=== PATIENT | female | born 1950 | race Caucasian/White ===

== ENCOUNTER 2018-05-11 15:16 | Emergency (ER) | payer MEDICARE, MEDICAID ==
[~2018-05-11] VITALS: Ht 157.5 cm; Wt 61.0 kg
[2018-05-11 16:03] LABS: BASOPHILS % (AUTO) 0.6 % (0-1); EOSINOPHILS % (AUTO) 0.7 % (0-6); HEMATOCRIT 39.9 % (35.0-45.0); HEMOGLOBIN 13.7 g/dl (12.0-16.0); LYMPHOCYTES # (AUTO) 2.2 X10'3 (1.1-4.8); LYMPHOCYTES % (AUTO) 33.4 % (21-51); MEAN CORPUSCULAR HEMOGLOBIN 32.4 PG (27.0-31.0); MEAN CORPUSCULAR HGB CONC 34.4 % (33.0-36.5); MEAN CORPUSCULAR VOLUME 94.1 FL (78-98); MEAN PLATELET VOLUME 9.2 FL (7.4-10.4); MONOCYTES # (AUTO) 0.3 X10'3 (0-0.9); MONOCYTES % (AUTO) 5.2 % (2-12); NEUTROPHILS % (AUTO) 60.1 % (42-75); PLATELET COUNT 139 X10'3 (140-440); RED BLOOD COUNT 4.24 X10'6 (4.20-5.60); RED CELL DISTRIBUTION WIDTH 13.1 % (11.5-14.5); WHITE BLOOD COUNT 6.7 X10'3 (4.5-11.0)
[2018-05-11 16:05] LABS: CLARITY,URINE CLEAR (Clear); COLOR,URINE YELLOW (Yellow); GLUCOSE, URINE NEGATIVE (Neg); KETONES,URINE NEGATIVE (Neg); LEUKOCYTE ESTERASE ,URINE NEGATIVE (Neg); NITRITES, URINE NEGATIVE (Neg); OCCULT BLOOD,URINE NEGATIVE (Neg); PROTEIN,URINE NEGATIVE (Neg); UROBILINOGEN,URINE 0.2 E.U/dL (0.2-1.0)
[2018-05-11 16:06] LABS: UA COLLECTION TYPE CLN CATCH MIDSTREAM
[2018-05-11 16:11] LABS: PROTHROMBIN TIME 10.2 SECONDS (9.0-12.0)
[2018-05-11 16:24] LABS: ALANINE AMINOTRANSFERASE 28 U/L (12-78); ALBUMIN 3.3 G/DL (3.4-5.0); ALBUMIN/GLOBULIN RATIO 0.9 (1.1-1.5); ALKALINE PHOSPHATASE 73 IU/L (46-116); ANION GAP 6 (8-16); ASPARTATE AMINO TRANSFERASE 18 U/L (10-37); BILIRUBIN,TOTAL 0.2 MG/DL (0.1-1.0); BLOOD UREA NITROGEN 10 MG/DL (7-18); BUN/CREATININE RATIO 10.2 (6.6-38.0); CALCIUM 8.8 MG/DL (8.5-10.1); CHLORIDE 108 MMOL/L (99-107); CREATININE 0.98 MG/DL (0.40-0.90); GLUCOSE 83 MG/DL (70-104); POTASSIUM 3.5 MMOL/L (3.5-5.1); SODIUM 143 MMOL/L (135-145); TOTAL CARBON DIOXIDE 29.3 MMOL/L (24-32); TOTAL PROTEIN 6.9 G/DL (6.4-8.2); eGFR 57 ML/MIN
[2018-05-11] MEDS ORDERED: BISA-155 PO (18:11)
[2018-05-11 18:22] VITALS: BP 128/82
== END 2018-05-11 18:25 | disposition home or self-care (01) ==
LOC: ER 15:19
DX: D35.02 Benign neoplasm of left adrenal gland (principal); K59.00 Constipation, unspecified; R11.0 Nausea; Z79.899 Other long term (current) drug therapy
CPT/HCPCS: 36415; 74176; 80053; 81003; 85025; 85610; 99285

== ENCOUNTER 2018-08-01 14:31 | Emergency (ER) | payer MEDICARE, MEDICAID ==
[~2018-08-01] VITALS: Ht 162.6 cm; Wt 50.0 kg
[~2018-08-01 14:31] MED LIST: BISA-155 PO
[2018-08-01] MEDS ORDERED: normal saline 1000ml 1,000 ML IV ONE (15:30)
[2018-08-01 15:57] LABS: BASOPHILS % (AUTO) 0.2 % (0-1); EOSINOPHILS # (AUTO) 0.1 X10'3 (0-0.9); EOSINOPHILS % (AUTO) 1.5 % (0-6); HEMATOCRIT 38.2 % (35.0-45.0); HEMOGLOBIN 12.8 g/dl (12.0-16.0); LYMPHOCYTES # (AUTO) 0.8 X10'3 (1.1-4.8); LYMPHOCYTES % (AUTO) 12.5 % (21-51); MEAN CORPUSCULAR HEMOGLOBIN 29.9 PG (27.0-31.0); MEAN CORPUSCULAR HGB CONC 33.4 % (33.0-36.5); MEAN CORPUSCULAR VOLUME 89.5 FL (78-98); MEAN PLATELET VOLUME 8.8 FL (7.4-10.4); MONOCYTES # (AUTO) 1.2 X10'3 (0-0.9); MONOCYTES % (AUTO) 17.2 % (2-12); NEUTROPHILS # (AUTO) 4.6 X10'3 (1.8-7.7); NEUTROPHILS % (AUTO) 68.6 % (42-75); PLATELET COUNT 184 X10'3 (140-440); RED BLOOD COUNT 4.26 X10'6 (4.20-5.60); RED CELL DISTRIBUTION WIDTH 13.3 % (11.5-14.5); WHITE BLOOD COUNT 6.7 X10'3 (4.5-11.0)
[2018-08-01 16:00] LABS: ALANINE AMINOTRANSFERASE 386 U/L (12-78); ALBUMIN 2.9 G/DL (3.4-5.0); ALBUMIN/GLOBULIN RATIO 0.6 (1.1-1.5); ALKALINE PHOSPHATASE 152 IU/L (46-116); ANION GAP 10 (8-16); ASPARTATE AMINO TRANSFERASE 402 U/L (10-37); BILIRUBIN,TOTAL 0.5 MG/DL (0.1-1.0); BLOOD UREA NITROGEN 18 MG/DL (7-18); BUN/CREATININE RATIO 15.5 (6.6-38.0); CALCIUM 9.3 MG/DL (8.5-10.1); CHLORIDE 98 MMOL/L (99-107); CREATININE 1.16 MG/DL (0.40-0.90); GLUCOSE 132 MG/DL (70-104); POTASSIUM 3.8 MMOL/L (3.5-5.1); SODIUM 134 MMOL/L (135-145); TOTAL CARBON DIOXIDE 26.2 MMOL/L (24-32); TOTAL PROTEIN 7.6 G/DL (6.4-8.2); eGFR 47 ML/MIN
[2018-08-01 16:10] LABS: LIPASE 753 U/L (73-393); TROPONIN I < 0.04 NG/ML (0.0-0.05)
[2018-08-01 17:06] LABS: CLARITY,URINE SLIGHTLY CLOUDY (Clear); GLUCOSE, URINE NEGATIVE (Neg); KETONES,URINE TRACE mg/dl (Neg); LEUKOCYTE ESTERASE ,URINE NEGATIVE (Neg); NITRITES, URINE NEGATIVE (Neg); OCCULT BLOOD,URINE MODERATE (Neg); PROTEIN,URINE TRACE mg/dl (Neg); UROBILINOGEN,URINE 0.2 E.U/dL (0.2-1.0)
[2018-08-01 17:27] LABS: COLOR,URINE AMBER (Yellow); UA COLLECTION TYPE CLN CATCH MIDSTREAM
[2018-08-01 17:28] LABS: BACTERIA,URINE FEW /HPF (Neg); MUCUS STRANDS MANY /LPF (Neg); RBC,URINE 0-2 /HPF (0-2); SQUAMOUS EPITHELIAL CELL,UR FEW /LPF (FEW)
[2018-08-01] MEDS ORDERED: NITR100C6 PO (18:02)
[2018-08-01] MEDS ORDERED: nitrofuran/nitrofuran macrocrysal 100 MG capsule PO ONE (18:10)
[2018-08-01] MEDS ORDERED: AZIT250T PO (18:40)
[2018-08-01 19:05] VITALS: BP 125/65
== END 2018-08-01 19:10 | disposition home or self-care (01) ==
LOC: ER 14:32
DX: N39.0 Urinary tract infection, site not specified (principal); J18.9 Pneumonia, unspecified organism; R19.7 Diarrhea, unspecified; R53.1 Weakness; R79.9 Abnormal finding of blood chemistry, unspecified
CPT/HCPCS: 36415; 71045; 74176; 80053; 81001; 83690; 84443; 84484; 85025; 87077; 87088; 93005; 99285; J7030

== ENCOUNTER 2018-08-20 17:44 | Observation (INO) | payer MEDICARE, MEDICAID ==
[~2018-08-20] VITALS: Ht 162.6 cm; Wt 58.2 kg
[~2018-08-20 17:44] MED LIST changes: +NITR100C6 PO
[2018-08-20] MEDS ORDERED: aspirin 81mg tab.chew PO ONE (18:05)
[2018-08-20 18:26] LABS: BASOPHILS % (AUTO) 0.2 % (0-1); EOSINOPHILS # (AUTO) 0.1 X10'3 (0-0.9); EOSINOPHILS % (AUTO) 1.5 % (0-6); HEMATOCRIT 38.1 % (35.0-45.0); HEMOGLOBIN 12.7 g/dl (12.0-16.0); LYMPHOCYTES # (AUTO) 1.4 X10'3 (1.1-4.8); LYMPHOCYTES % (AUTO) 23.1 % (21-51); MEAN CORPUSCULAR HEMOGLOBIN 31.1 PG (27.0-31.0); MEAN CORPUSCULAR HGB CONC 33.3 % (33.0-36.5); MEAN CORPUSCULAR VOLUME 93.3 FL (78-98); MEAN PLATELET VOLUME 8.5 FL (7.4-10.4); MONOCYTES # (AUTO) 0.4 X10'3 (0-0.9); MONOCYTES % (AUTO) 6.1 % (2-12); NEUTROPHILS # (AUTO) 4.3 X10'3 (1.8-7.7); NEUTROPHILS % (AUTO) 69.1 % (42-75); PLATELET COUNT 161 X10'3 (140-440); RED BLOOD COUNT 4.09 X10'6 (4.20-5.60); RED CELL DISTRIBUTION WIDTH 15.4 % (11.5-14.5); WHITE BLOOD COUNT 6.3 X10'3 (4.5-11.0)
[2018-08-20] MEDS ORDERED: LIDOcaine Viscous 15ml cup PO ONE (18:35)
[2018-08-20] MEDS ORDERED: mag hydrox/Alum hydrox/simeth 30ml oral suspension PO ONE (18:35)
[2018-08-20 18:37] LABS: PARTIAL THROMBOPLASTIN TIME 24 SECONDS (22-32); PROTHROMBIN TIME 10.7 SECONDS (9.0-12.0)
[2018-08-20 18:39] LABS: ALANINE AMINOTRANSFERASE 26 U/L (12-78); ALBUMIN 3.2 G/DL (3.4-5.0); ALBUMIN/GLOBULIN RATIO 0.9 (1.1-1.5); ALKALINE PHOSPHATASE 81 IU/L (46-116); ANION GAP 17 (8-16); ASPARTATE AMINO TRANSFERASE 20 U/L (10-37); BILIRUBIN,TOTAL 0.2 MG/DL (0.1-1.0); BLOOD UREA NITROGEN 7 MG/DL (7-18); BUN/CREATININE RATIO 7.4 (6.6-38.0); CALCIUM 8.5 MG/DL (8.5-10.1); CHLORIDE 104 MMOL/L (99-107); CREATININE 0.94 MG/DL (0.40-0.90); GLUCOSE 112 MG/DL (70-104); POTASSIUM 3.7 MMOL/L (3.5-5.1); SODIUM 143 MMOL/L (135-145); TOTAL CARBON DIOXIDE 22.1 MMOL/L (24-32); TOTAL PROTEIN 6.8 G/DL (6.4-8.2); eGFR 60 ML/MIN
[2018-08-20] MEDS ORDERED: ondansetron/PF 4mg/2ml inj IV ONE (19:15)
[2018-08-20] MEDS ORDERED: morphine 4 MG/ML inj SYRINge IV ONE (19:15)
[2018-08-20] MEDS ORDERED: magnesium hydroxide 30ml (MOM) UD suspension PO PRN (20:55)
[2018-08-20] MEDS ORDERED: morphine 2 MG/ML inj. syringe IV PRN ×2 (20:55)
[2018-08-20] MEDS ORDERED: mag hydrox/Alum hydrox/simeth 30ml oral suspension PO PRN (20:55)
[2018-08-20] MEDS ORDERED: ondansetron/PF 4mg/2ml inj IV PRN (20:55)
[2018-08-20] MEDS ORDERED: acetaminophen 325mg tablet PO PRN (20:55)
[2018-08-20] MEDS ORDERED: ZONI100C6 PO ×2 (21:08→21:11)
[2018-08-20 22:00] VITALS: BP 135/59
[2018-08-20] MEDS ORDERED: lamoTRIgine 100mg tablet PO SCH (22:12)
[2018-08-20] MEDS: atorvastatin 20mg tablet PO SCH (23:38)
[2018-08-20] MEDS: lamoTRIgine 25mg tablet PO SCH (23:38)
[2018-08-21] VITALS (13 sets, daily range): BP systolic 85–159; BP diastolic 40–84
[2018-08-21] MEDS: lamoTRIgine 25mg tablet PO SCH ×2 (07:27→20:47)
[2018-08-21 07:40] LABS: BASOPHILS % (AUTO) 0.4 % (0-1); EOSINOPHILS # (AUTO) 0.1 X10'3 (0-0.9); EOSINOPHILS % (AUTO) 1.8 % (0-6); HEMATOCRIT 38.6 % (35.0-45.0); LYMPHOCYTES # (AUTO) 2.2 X10'3 (1.1-4.8); LYMPHOCYTES % (AUTO) 29.7 % (21-51); MEAN CORPUSCULAR HEMOGLOBIN 31.2 PG (27.0-31.0); MEAN CORPUSCULAR HGB CONC 33.6 % (33.0-36.5); MEAN PLATELET VOLUME 8.8 FL (7.4-10.4); MONOCYTES # (AUTO) 0.6 X10'3 (0-0.9); MONOCYTES % (AUTO) 7.9 % (2-12); NEUTROPHILS # (AUTO) 4.4 X10'3 (1.8-7.7); NEUTROPHILS % (AUTO) 60.2 % (42-75); PLATELET COUNT 173 X10'3 (140-440); RED BLOOD COUNT 4.15 X10'6 (4.20-5.60); RED CELL DISTRIBUTION WIDTH 14.8 % (11.5-14.5); WHITE BLOOD COUNT 7.4 X10'3 (4.5-11.0)
[2018-08-21 07:54] LABS: ALANINE AMINOTRANSFERASE 123 U/L (12-78); ALBUMIN 3.1 G/DL (3.4-5.0); ALBUMIN/GLOBULIN RATIO 0.9 (1.1-1.5); ALKALINE PHOSPHATASE 110 IU/L (46-116); ANION GAP 11 (8-16); ASPARTATE AMINO TRANSFERASE 170 U/L (10-37); BILIRUBIN,TOTAL 0.5 MG/DL (0.1-1.0); BLOOD UREA NITROGEN 5 MG/DL (7-18); BUN/CREATININE RATIO 6.8 (6.6-38.0); CALCIUM 8.9 MG/DL (8.5-10.1); CHLORIDE 104 MMOL/L (99-107); CREATININE 0.74 MG/DL (0.40-0.90); GLUCOSE 108 MG/DL (70-104); POTASSIUM 3.7 MMOL/L (3.5-5.1); SODIUM 140 MMOL/L (135-145); TOTAL CARBON DIOXIDE 25.1 MMOL/L (24-32); TOTAL PROTEIN 6.7 G/DL (6.4-8.2); eGFR 79 ML/MIN
[2018-08-21 07:57] LABS: CHOL/HDL RATIO 1.7 (0.00-4.99); CHOLESTEROL 119 MG/DL (0-200); HDL CHOLESTEROL 72 MG/DL (35-60); LDL CHOLESTEROL 39 MG/DL (50-100); TRIGLYCERIDES 54 MG/DL (20-135)
[2018-08-21] MEDS ORDERED: heparin, porcine 5000 units/ml vial SQ SCH (08:00)
[2018-08-21] MEDS ORDERED: heparin 10,000 units/1 ML INJ IV ONE (08:40)
[2018-08-21] MEDS ORDERED: heparin 10,000 units/1 ML INJ IV PRN (08:40)
[2018-08-21 09:17] LABS: PARTIAL THROMBOPLASTIN TIME 28 SECONDS (22-32); PROTHROMBIN TIME 10.7 SECONDS (9.0-12.0)
[2018-08-21] MEDS: aspirin 81mg tab.chew PO SCH (09:17)
[2018-08-21] MEDS ORDERED: LAMO25TA (10:07)
[2018-08-21] MEDS ORDERED: KETO5DRO39 EACHEYE (10:07)
[2018-08-21] MEDS ORDERED: OFLO5DRO3 (10:07)
[2018-08-21] MEDS ORDERED: midazolam 2 mg/2 ml injection ONE (14:11)
[2018-08-21] MEDS ORDERED: iohexol 350MG/ML 100ml bottle IV ONE (14:12)
[2018-08-21] MEDS ORDERED: fentaNYL/PF 50MCG/1 ML 2ML syringe ONE (14:12)
[2018-08-21] MEDS ORDERED: lidocaine 1%/epinephrine 1:100,000 injection 50ml vial ONE (14:12)
[2018-08-21] MEDS ORDERED: LIDOcaine 1% (10mg/ml)w/preservative injection 20ml MDV ONE (14:18)
[2018-08-21] MEDS ORDERED: proCHLORperazine 10 MG/2 ml inj IV PRN (15:30)
[2018-08-21] MEDS ORDERED: OXAZEpam 15mg capsule PO PRN (15:30)
[2018-08-21] MEDS ORDERED: nitroGLYCERIN 0.4mg SUBLingual tab SL PRN (15:30)
[2018-08-21] MEDS ORDERED: metoprolol tartrate 25mg tablet PO SCH (20:00)
[2018-08-21] MEDS: atorvastatin 20mg tablet PO SCH (20:44)
[2018-08-21] MEDS ORDERED: atorvastatin 20mg tablet PO SCH (21:00)
[2018-08-22 03:00] VITALS: BP 99/40
[2018-08-22 03:58] VITALS: BP 85/40
[2018-08-22 05:18] LABS: BASOPHILS % (AUTO) 0.7 % (0-1); EOSINOPHILS # (AUTO) 0.1 X10'3 (0-0.9); EOSINOPHILS % (AUTO) 1.7 % (0-6); HEMATOCRIT 36.7 % (35.0-45.0); HEMOGLOBIN 12.2 g/dl (12.0-16.0); LYMPHOCYTES # (AUTO) 2.4 X10'3 (1.1-4.8); LYMPHOCYTES % (AUTO) 42.9 % (21-51); MEAN CORPUSCULAR HEMOGLOBIN 31.2 PG (27.0-31.0); MEAN CORPUSCULAR HGB CONC 33.3 % (33.0-36.5); MEAN CORPUSCULAR VOLUME 93.6 FL (78-98); MEAN PLATELET VOLUME 8.9 FL (7.4-10.4); MONOCYTES # (AUTO) 0.4 X10'3 (0-0.9); MONOCYTES % (AUTO) 7.8 % (2-12); NEUTROPHILS # (AUTO) 2.7 X10'3 (1.8-7.7); NEUTROPHILS % (AUTO) 46.9 % (42-75); PLATELET COUNT 157 X10'3 (140-440); RED BLOOD COUNT 3.92 X10'6 (4.20-5.60); RED CELL DISTRIBUTION WIDTH 15.4 % (11.5-14.5); WHITE BLOOD COUNT 5.7 X10'3 (4.5-11.0)
[2018-08-22 05:45] LABS: ALANINE AMINOTRANSFERASE 73 U/L (12-78); ALBUMIN 2.8 G/DL (3.4-5.0); ALBUMIN/GLOBULIN RATIO 0.8 (1.1-1.5); ALKALINE PHOSPHATASE 93 IU/L (46-116); ANION GAP 7 (8-16); ASPARTATE AMINO TRANSFERASE 55 U/L (10-37); BILIRUBIN,TOTAL 0.4 MG/DL (0.1-1.0); BLOOD UREA NITROGEN 10 MG/DL (7-18); BUN/CREATININE RATIO 12.2 (6.6-38.0); CALCIUM 8.8 MG/DL (8.5-10.1); CHLORIDE 106 MMOL/L (99-107); CREATININE 0.82 MG/DL (0.40-0.90); GLUCOSE 99 MG/DL (70-104); SODIUM 141 MMOL/L (135-145); TOTAL CARBON DIOXIDE 28.1 MMOL/L (24-32); TOTAL PROTEIN 6.1 G/DL (6.4-8.2); eGFR 70 ML/MIN
[2018-08-22 06:00] VITALS: BP 80/33
[2018-08-22] MEDS: lamoTRIgine 25mg tablet PO SCH (07:30)
[2018-08-22] MEDS: aspirin 81mg tab.chew PO SCH (07:30)
== END 2018-08-22 10:41 | disposition left against medical advice (07) ==
LOC: ER 17:45 → ED HOLD 20:53 → PCU 3S 21:30
PROVIDERS: ADMIT Internal Medicine; ATTEND Hospitalist
DX: R07.89 Other chest pain (principal); G40.909 Epilepsy, unspecified, not intractable, without status epilepticus; I51.81 Takotsubo syndrome; I25.10 Atherosclerotic heart disease of native coronary artery without angina pectoris; Z72.0 Tobacco use; Z79.82 Long term (current) use of aspirin; Z53.21 Procedure and treatment not carried out due to patient leaving prior to being seen by health care provider
CPT/HCPCS: 36415; 70450; 71045; 80053; 80061; 84484; 85025; 85610; 85730; 87070; 93005; 93306; 93458; 96365; 96366; 96372; 96375; 96376; 99285; C1760; C1769; G0378; J1644; J2001; J2250; J2270; J2405; J3010; Q9967; 99152; 99153; A4620; J3490

== ENCOUNTER 2018-08-28 17:01 | Inpatient (IN) | payer MEDICARE, MEDICAID ==
[~2018-08-28] VITALS: Ht 162.6 cm; Wt 56.8 kg
[~2018-08-28 17:01] MED LIST changes: -BISA-155 PO; +KETO5DRO39 EACHEYE; +LAMO25TA PO; -NITR100C6 PO; +OFLO5DRO3; +ZONI100C6 PO
[2018-08-28 18:26] LABS: CLARITY,URINE CLOUDY (Clear); COLOR,URINE YELLOW (Yellow); GLUCOSE, URINE NEGATIVE (Neg); KETONES,URINE NEGATIVE (Neg); LEUKOCYTE ESTERASE ,URINE NEGATIVE (Neg); NITRITES, URINE NEGATIVE (Neg); OCCULT BLOOD,URINE MODERATE (Neg); PROTEIN,URINE NEGATIVE (Neg); UROBILINOGEN,URINE 0.2 E.U/dL (0.2-1.0)
[2018-08-28 18:30] LABS: UA COLLECTION TYPE CLN CATCH MIDSTREAM
[2018-08-28 18:34] LABS: WBC,URINE 0-4 /HPF (0-4)
[2018-08-28 18:35] LABS: BACTERIA,URINE FEW /HPF (Neg); SQUAMOUS EPITHELIAL CELL,UR FEW /LPF (FEW)
[2018-08-28 18:36] LABS: AMORPHOUS PHOSPHATES 4+
[2018-08-28 18:44] LABS: BASOPHILS % (AUTO) 0.3 % (0-1); EOSINOPHILS % (AUTO) 0.4 % (0-6); HEMATOCRIT 40.6 % (35.0-45.0); HEMOGLOBIN 13.6 g/dl (12.0-16.0); LYMPHOCYTES % (AUTO) 12.4 % (21-51); MEAN CORPUSCULAR HEMOGLOBIN 31.3 PG (27.0-31.0); MEAN CORPUSCULAR HGB CONC 33.6 % (33.0-36.5); MEAN CORPUSCULAR VOLUME 93.2 FL (78-98); MEAN PLATELET VOLUME 9.3 FL (7.4-10.4); MONOCYTES # (AUTO) 0.4 X10'3 (0-0.9); MONOCYTES % (AUTO) 5.1 % (2-12); NEUTROPHILS # (AUTO) 6.3 X10'3 (1.8-7.7); NEUTROPHILS % (AUTO) 81.8 % (42-75); PLATELET COUNT 142 X10'3 (140-440); RED BLOOD COUNT 4.36 X10'6 (4.20-5.60); RED CELL DISTRIBUTION WIDTH 14.5 % (11.5-14.5); WHITE BLOOD COUNT 7.7 X10'3 (4.5-11.0)
[2018-08-28 18:49] LABS: ALANINE AMINOTRANSFERASE 32 U/L (12-78); ALBUMIN 3.6 G/DL (3.4-5.0); ALBUMIN/GLOBULIN RATIO 0.9 (1.1-1.5); ALKALINE PHOSPHATASE 95 IU/L (46-116); ANION GAP 8 (8-16); ASPARTATE AMINO TRANSFERASE 27 U/L (10-37); BILIRUBIN,TOTAL 0.3 MG/DL (0.1-1.0); BLOOD UREA NITROGEN 9 MG/DL (7-18); BUN/CREATININE RATIO 8.5 (6.6-38.0); CALCIUM 8.9 MG/DL (8.5-10.1); CHLORIDE 104 MMOL/L (99-107); CREATININE 1.06 MG/DL (0.40-0.90); GLUCOSE 103 MG/DL (70-104); POTASSIUM 3.9 MMOL/L (3.5-5.1); SODIUM 139 MMOL/L (135-145); TOTAL CARBON DIOXIDE 26.9 MMOL/L (24-32); TOTAL PROTEIN 7.6 G/DL (6.4-8.2); eGFR 52 ML/MIN
[2018-08-28] MEDS ORDERED: LIDOcaine 2% (20 mg/ml) 5ml cardiac syringe IV STA (19:26)
[2018-08-28] MEDS ORDERED: normal saline 1000ML IV soln IVB ONE (19:30)
[2018-08-28] MEDS ORDERED: ketorolac trometh. 30mg/ml inj. IV ONE (19:30)
[2018-08-28] MEDS ORDERED: meperidine/PF 50mg/ml syringe IV ONE (19:30)
[2018-08-28] MEDS ORDERED: magnesium hydroxide 30ml (MOM) UD suspension PO PRN (19:40)
[2018-08-28] MEDS ORDERED: HYDROmorphone 1 mg/ml syringe IV PRN ×2 (19:40)
[2018-08-28] MEDS ORDERED: ondansetron/PF 4mg/2ml inj IV PRN (19:40)
[2018-08-28] MEDS ORDERED: acetaminophen 325mg tablet PO PRN (19:40)
[2018-08-28] MEDS ORDERED: mag hydrox/Alum hydrox/simeth 30ml oral suspension PO PRN (19:40)
[2018-08-28] MEDS: normal saline 1000ml 1,000 ML IV SCH (20:14)
[2018-08-28 20:21] LABS: TROPONIN I < 0.04 NG/ML (0.0-0.05)
[2018-08-28 21:08] LABS: PARTIAL THROMBOPLASTIN TIME 27 SECONDS (22-32)
[2018-08-28] MEDS: heparin, porcine 5000 units/ml vial SQ SCH (21:35)
[2018-08-29] VITALS (17 sets, daily range): BP systolic 120–179; BP diastolic 54–89
[2018-08-29] MEDS: normal saline 1000ml 1,000 ML IV SCH (00:08)
[2018-08-29 06:25] LABS: BASOPHILS % (AUTO) 0.5 % (0-1); EOSINOPHILS # (AUTO) 0.1 X10'3 (0-0.9); EOSINOPHILS % (AUTO) 1.9 % (0-6); HEMATOCRIT 32.3 % (35.0-45.0); HEMOGLOBIN 10.8 g/dl (12.0-16.0); LYMPHOCYTES # (AUTO) 2.6 X10'3 (1.1-4.8); LYMPHOCYTES % (AUTO) 42.2 % (21-51); MEAN CORPUSCULAR HEMOGLOBIN 31.5 PG (27.0-31.0); MEAN CORPUSCULAR HGB CONC 33.5 % (33.0-36.5); MEAN CORPUSCULAR VOLUME 94.2 FL (78-98); MONOCYTES # (AUTO) 0.6 X10'3 (0-0.9); MONOCYTES % (AUTO) 9.3 % (2-12); NEUTROPHILS # (AUTO) 2.9 X10'3 (1.8-7.7); NEUTROPHILS % (AUTO) 46.1 % (42-75); PLATELET COUNT 109 X10'3 (140-440); RED BLOOD COUNT 3.44 X10'6 (4.20-5.60); RED CELL DISTRIBUTION WIDTH 14.3 % (11.5-14.5); WHITE BLOOD COUNT 6.2 X10'3 (4.5-11.0)
[2018-08-29 06:45] LABS: ALANINE AMINOTRANSFERASE 21 U/L (12-78); ALBUMIN 2.5 G/DL (3.4-5.0); ALBUMIN/GLOBULIN RATIO 0.8 (1.1-1.5); ALKALINE PHOSPHATASE 70 IU/L (46-116); ANION GAP 6 (8-16); ASPARTATE AMINO TRANSFERASE 23 U/L (10-37); BILIRUBIN,TOTAL 0.3 MG/DL (0.1-1.0); BLOOD UREA NITROGEN 10 MG/DL (7-18); BUN/CREATININE RATIO 8.6 (6.6-38.0); CALCIUM 8.3 MG/DL (8.5-10.1); CHLORIDE 109 MMOL/L (99-107); CREATININE 1.16 MG/DL (0.40-0.90); GLUCOSE 81 MG/DL (70-104); POTASSIUM 3.7 MMOL/L (3.5-5.1); SODIUM 142 MMOL/L (135-145); TOTAL CARBON DIOXIDE 26.6 MMOL/L (24-32); TOTAL PROTEIN 5.6 G/DL (6.4-8.2); eGFR 47 ML/MIN
[2018-08-29] MEDS: heparin, porcine 5000 units/ml vial SQ SCH ×2 (07:44→19:53)
[2018-08-29] MEDS: zonisamide 100mg capsule PO SCH (07:44)
[2018-08-29] MEDS: lamoTRIgine 25mg tablet PO SCH ×2 (07:49→19:57)
[2018-08-29] MEDS ORDERED: pneumococcal 23-VAL P-sac vacc 25 mcg/0.5ml vial IMVAC ONE (09:00)
[2018-08-29] MEDS: nicotine 21mg patch - 24 hr TD SCH (09:33)
[2018-08-29] MEDS ORDERED: fentaNYL/PF 50MCG/1 ML 2ML syringe ONE (17:49)
[2018-08-29] MEDS ORDERED: midazolam 2 mg/2 ml injection ONE (17:49)
[2018-08-29] MEDS ORDERED: dexamethasone sod phosphate 10mg/ml inj ONE (17:51)
[2018-08-29] MEDS ORDERED: ePHEDrine 50MG/ML INJ. ONE (17:51)
[2018-08-29] MEDS ORDERED: LIDOcaine 2% (20mg/ml) 5ml vial ONE (17:51)
[2018-08-29] MEDS ORDERED: succinylcholine 20mg/ml inj IV ONE (17:51)
[2018-08-29] MEDS ORDERED: sevoflurane 250ml liquid IH ONE (17:51)
[2018-08-29] MEDS ORDERED: propofol inj 20 ML IV ONE (17:51)
[2018-08-29] MEDS ORDERED: ceFAZolin 1000mg inj ONE (18:11)
[2018-08-29] MEDS ORDERED: glycopyrrolate 0.2mg/ml inj ONE (18:11)
[2018-08-29] MEDS ORDERED: ondansetron/PF 4mg/2ml inj ONE (18:11)
[2018-08-29] MEDS ORDERED: ringers solution, lacted 1,000 ML IV SCH (18:32)
[2018-08-29] MEDS ORDERED: ondansetron/PF 4mg/2ml inj IV PRN (18:35)
[2018-08-29] MEDS ORDERED: morphine 4 MG/ML inj SYRINge IV PRN ×2 (18:35)
[2018-08-29] MEDS ORDERED: meperidine/PF 25mg/ml syringe IV PRN ×3 (18:35)
[2018-08-29] MEDS ORDERED: proCHLORperazine 10 MG/2 ml inj IV PRN (18:35)
[2018-08-30] VITALS: BP 133/65
[2018-08-30] MEDS: normal saline 1000ml 1,000 ML IV SCH (00:16)
[2018-08-30 04:32] VITALS: BP 123/71
[2018-08-30 06:37] LABS: ALANINE AMINOTRANSFERASE 24 U/L (12-78); ALBUMIN 2.7 G/DL (3.4-5.0); ALBUMIN/GLOBULIN RATIO 0.8 (1.1-1.5); ALKALINE PHOSPHATASE 75 IU/L (46-116); ANION GAP 8 (8-16); ASPARTATE AMINO TRANSFERASE 21 U/L (10-37); BILIRUBIN,TOTAL 0.4 MG/DL (0.1-1.0); BLOOD UREA NITROGEN 10 MG/DL (7-18); BUN/CREATININE RATIO 10.4 (6.6-38.0); CALCIUM 8.7 MG/DL (8.5-10.1); CHLORIDE 107 MMOL/L (99-107); CREATININE 0.96 MG/DL (0.40-0.90); GLUCOSE 105 MG/DL (70-104); SODIUM 141 MMOL/L (135-145); TOTAL CARBON DIOXIDE 26.4 MMOL/L (24-32); TOTAL PROTEIN 6.2 G/DL (6.4-8.2); eGFR 58 ML/MIN
[2018-08-30 07:14] LABS: BASOPHILS % (AUTO) 0.2 % (0-1); EOSINOPHILS % (AUTO) 0.2 % (0-6); HEMATOCRIT 32.1 % (35.0-45.0); HEMOGLOBIN 11.4 g/dl (12.0-16.0); LYMPHOCYTES % (AUTO) 19.4 % (21-51); MEAN CORPUSCULAR HEMOGLOBIN 32.8 PG (27.0-31.0); MEAN CORPUSCULAR HGB CONC 35.5 % (33.0-36.5); MEAN CORPUSCULAR VOLUME 92.3 FL (78-98); MEAN PLATELET VOLUME 9.3 FL (7.4-10.4); MONOCYTES # (AUTO) 0.3 X10'3 (0-0.9); MONOCYTES % (AUTO) 5.1 % (2-12); NEUTROPHILS # (AUTO) 4.1 X10'3 (1.8-7.7); NEUTROPHILS % (AUTO) 75.1 % (42-75); PLATELET COUNT 109 X10'3 (140-440); RED BLOOD COUNT 3.48 X10'6 (4.20-5.60); WHITE BLOOD COUNT 5.4 X10'3 (4.5-11.0)
[2018-08-30 08:00] VITALS: BP 135/61
[2018-08-30] MEDS: heparin, porcine 5000 units/ml vial SQ SCH (08:00)
[2018-08-30] MEDS: zonisamide 100mg capsule PO SCH (08:10)
[2018-08-30] MEDS: lamoTRIgine 25mg tablet PO SCH (08:10)
[2018-08-30] MEDS: nicotine 21mg patch - 24 hr TD SCH (08:12)
[2018-08-30] MEDS ORDERED: aspirin 325mg tablet PO SCH (08:30)
[2018-08-30] MEDS ORDERED: HYDR-3965 PO (08:56)
== END 2018-08-30 13:38 | disposition home or self-care (01) | DRG 660 ==
LOC: ER 17:01 → ED HOLD 19:37 → SUR 3N 23:58
PROVIDERS: ADMIT Internal Medicine; ATTEND Internal Medicine
PROC: 3E02340 Introduction of Influenza Vaccine into Muscle, Percutaneous Approach (ICD-10-PCS; 2018-08-29)
PROC: BT161ZZ Fluoroscopy of Right Ureter using Low Osmolar Contrast (ICD-10-PCS; 2018-08-29)
PROC: 0T768DZ Dilation of Right Ureter with Intraluminal Device, Via Natural or Artificial Opening Endoscopic (ICD-10-PCS; principal; 2018-08-29 17:51)
DX: N13.2 Hydronephrosis with renal and ureteral calculous obstruction (principal); I42.9 Cardiomyopathy, unspecified; I25.10 Atherosclerotic heart disease of native coronary artery without angina pectoris; G40.909 Epilepsy, unspecified, not intractable, without status epilepticus; F17.210 Nicotine dependence, cigarettes, uncomplicated; J44.9 Chronic obstructive pulmonary disease, unspecified; I25.2 Old myocardial infarction; Z79.899 Other long term (current) drug therapy; Z87.442 Personal history of urinary calculi; Z23 Encounter for immunization
CPT/HCPCS: 36415; 71045; 74176; 76000; 80053; 81001; 83880; 84484; 85025; 85610; 85730; 87070; 90732; 93005; 99285; A4402; C1758; C1769; C2617; J0330; J0690; J1100; J1170; J1644; J1885; J2001; J2175; J2250; J2270; J2405; J2704; J3010; J3490; J7030; J7120